=== PATIENT | female | born 1970 | race Caucasian/White ===

== ENCOUNTER 2017-08-19 13:27 | Emergency (ER) | payer OTHER ==
[2017-08-19 13:42] LABS: Bilirubin Negative (Negative); Blood, Urine Trace (Negative); Clarity Cloudy (Clear); Glucose, Urine (Dipstick) Negative (Negative); Leukocyte Negative (Negative); Nitrite Negative (Negative); Protein, Urine (Dipstick) Trace mg/dL (Neg-Trace); Urobilinogen 0.2 mg/dL (0.2-1.0); pH, Urine 5.5 (5.0-9.0)
[2017-08-19 13:54] LABS: Specific Gravity, Urine 1.025 (1.002-1.036)
[2017-08-19 13:57] LABS: Bacteria/HPF 2+ HPF (None Seen); Other Microscopic Description CLUE CELLS SEEN; RBC/HPF 0-3 HPF (0-3); WBC/HPF 0-3 HPF (0-3)
[2017-08-19] MEDS ORDERED: Acetaminophen/Codeine 30-300mg Tablet ONE (14:21)
--- NOTE | 2017-08-19 15:12 | RAD ---
LEFT RIBS 2 VIEWS WITH CHEST 1 VIEW: Date: 08/19/17 HISTORY: 47-year-old female with left-sided flank pain under ribs in a patient with cough, without trauma. FINDINGS: Chest 1 view demonstrates minimal linear and parenchymal changes in the left lower chest, possibly so me subsegmental atelectasis. No pneumothorax or pleural effusion. No confluent pneumonia. No evidence for an acute rib fracture. IMPRESSION: No evidence for an acute rib fracture. Minimal linear parenchymal changes left base, probably subsegm ental atelectasis. No pneumothorax or pleural effusion. POS: [facility]
== END 2017-08-19 14:24 | disposition home or self-care (01) ==
LOC: NAV ERS 13:27
DX: R07.9 Chest pain, unspecified (principal); E03.9 Hypothyroidism, unspecified; I10 Essential (primary) hypertension; Z87.891 Personal history of nicotine dependence; Z79.899 Other long term (current) drug therapy
CPT/HCPCS: 81003; 81015

== ENCOUNTER 2022-04-23 17:00 | Outpatient (CLI) | payer OTHER | END 2022-04-23 17:01 | disposition home or self-care (01) | LOC: NAV RAD 17:00 | PROVIDERS: ATTEND Nurse Practitioner Family | DX: M25.532 Pain in left wrist (principal) ==

== ENCOUNTER 2022-05-24 15:18 | Emergency (ER) | payer OTHER ==
[2022-05-24] MEDS ORDERED: Ibuprofen 200 MG TAB ONE (16:01)
== END 2022-05-24 16:14 | disposition home or self-care (01) ==
LOC: NAV ERS 15:18
DX: S93.401A Sprain of unspecified ligament of right ankle, initial encounter (principal); E03.9 Hypothyroidism, unspecified; I10 Essential (primary) hypertension; F17.210 Nicotine dependence, cigarettes, uncomplicated; Z79.899 Other long term (current) drug therapy; X50.1XXA Overexertion from prolonged static or awkward postures, initial encounter